=== PATIENT | female | born 1990 | race Caucasian/White ===

== ENCOUNTER 2017-01-07 20:30 | Emergency (ER) | payer OTHER, SELFPAY ==
[2017-01-07] MEDS ORDERED: Acetaminophen 500 MG TAB ONE (20:56)
[2017-01-07 21:08] LABS: Bilirubin Negative (Negative); Blood, Urine Small (Negative); Clarity Clear (Clear); Glucose, Urine (Dipstick) Negative (Negative); Leukocyte Negative (Negative); Nitrite Negative (Negative); Protein, Urine (Dipstick) Negative (Neg-Trace); Urobilinogen 0.2 mg/dL (0.2-1.0)
[2017-01-07] MEDS ORDERED: Ondansetron ODT 4 MG TAB ONE (21:12)
[2017-01-07 21:16] LABS: Pregnancy Test - Urine (BHCG) Negative (NEGATIVE); Pregu Control Background? CLEAR/WHITE (CLR/WHITE); Pregu Control Bar Appear? YES (CONTROL BAR)
[2017-01-07 21:20] LABS: Amphetamine Detected (NotDetected); Benzodiazepine Screen Detected (NotDetected); Opiate Screen Detected (NotDetected)
[2017-01-07 21:21] LABS: Barbiturates Screen Not Detected (NotDetected); Cocaine Metabolite Screen Not Detected (NotDetected); Medtox Control Line Valid? VALID (VALID); Methadone Not Detected (NotDetected); Methamphetamine Not Detected (NotDetected); Oxycodone Screen Not Detected (NotDetected); Phencyclidine (PCP) Not Detected (NotDetected); THC/Cannabinoid Screen Not Detected (NotDetected); Tricyclic Screen Not Detected (NotDetected)
[2017-01-07 21:24] LABS: Bacteria/HPF None Seen HPF (None Seen); RBC/HPF 0-3 HPF (0-3); Squamous Epithelial 0-3 HPF (0-3); WBC/HPF None Seen HPF (0-3)
[2017-01-07] MEDS ORDERED: Ibuprofen 100 MG/5 ML UDCUP ONE (21:59)
== END 2017-01-07 21:55 | disposition home or self-care (01) ==
LOC: NAV ERS 20:30
DX: N93.8 Other specified abnormal uterine and vaginal bleeding (principal); Z87.442 Personal history of urinary calculi
CPT/HCPCS: 80306; 81003; 81015; 81025; 87086; 99284; Q0162

== ENCOUNTER 2017-03-01 21:28 | Emergency (ER) | payer SELFPAY ==
[2017-03-01] MEDS ORDERED: guaiFENesin 100 MG/5 ML UDCUP ONE (22:08)
[2017-03-01] MEDS ORDERED: Acetaminophen 500 MG TAB ONE (22:08)
[2017-03-01] MEDS ORDERED: AMOXicillin 250 MG CAP ONE (22:16)
== END 2017-03-01 22:20 | disposition home or self-care (01) ==
LOC: NAV ERS 21:28
DX: J01.90 Acute sinusitis, unspecified (principal); J06.9 Acute upper respiratory infection, unspecified; Z87.442 Personal history of urinary calculi
CPT/HCPCS: 87081; 87430; 99283

== ENCOUNTER 2017-05-11 17:53 | Emergency (ER) | payer SELFPAY ==
[2017-05-11] MEDS ORDERED: Bicillin LA 1.2 MILLION UNITS/2 ML SYRINGE ONE (18:07)
[2017-05-11] MEDS ORDERED: Dexamethasone 4 mg/ml Vial ONE (18:08)
== END 2017-05-11 18:40 | disposition home or self-care (01) ==
LOC: NAV ERS 17:53
DX: J02.0 Streptococcal pharyngitis (principal); F17.210 Nicotine dependence, cigarettes, uncomplicated; F41.9 Anxiety disorder, unspecified; Z87.442 Personal history of urinary calculi
CPT/HCPCS: 96372; J0561; J1100

== ENCOUNTER 2017-06-02 15:40 | Emergency (ER) | payer SELFPAY ==
[2017-06-02 16:21] LABS: Mean Corpuscular HGB CONC 33.6 g/dL (32.0-36.0); Mean Corpuscular Volume 96.3 fl (81.0-99.0); Mean Platelet Volume 10.3 fL (7.4-10.4); RBC Distribution Width 11.7 % (11.5-14.5); White Blood Cell (WBC) Count 7.6 thou/uL (4.8-10.8)
[2017-06-02 16:22] LABS: BHCG - Serum Negative (NEGATIVE); Pregs Control Bar Appear? YES (CONTROL BAR)
[2017-06-02 16:23] LABS: #Basophils 0.2 thou/uL (0.0-0.2); #Eosinphils 0.2 thou/uL (0.0-0.7); #Lymphocytes 2.8 thou/uL (1.20-3.40); #Monocytes 0.7 thou/uL (0.11-0.59); #Neutrophils 3.7 thou/uL (1.40-6.50); %Basophils 2.7 % (0.0-1.0); %Eosinophils 2.6 % (0.0-10.0); %Neutrophils 48.8 % (42.0-75.0); Hemoglobin 14.2 g/dL (12.0-16.0); Mean Corpuscular Hemoglobin 32.4 pg (27.0-31.0); Platelet Count 257 thou/uL (130-400)
[2017-06-02 16:25] LABS: Red Blood Cell (RBC) Count 4.37 mill/uL (4.20-5.40)
[2017-06-02] MEDS ORDERED: traMADol HCl 50 MG TAB ONE (16:38)
[2017-06-03 01:23] LABS: Chlamydia by PCR Not Detected (NotDetected); GC by PCR Not Detected (NotDetected)
== END 2017-06-02 16:55 | disposition home or self-care (01) ==
LOC: NAV ERS 15:40
DX: N93.8 Other specified abnormal uterine and vaginal bleeding (principal); F41.9 Anxiety disorder, unspecified; F17.210 Nicotine dependence, cigarettes, uncomplicated; Z87.442 Personal history of urinary calculi
CPT/HCPCS: 84703; 85025; 87480; 87491; 87510; 87591; 87660; 99284

== ENCOUNTER 2017-06-20 12:40 | Emergency (ER) | payer SELFPAY ==
[2017-06-20 13:20] LABS: Bilirubin Negative (Negative); Blood, Urine Large (Negative); Clarity Slightly Cloudy (Clear); Glucose, Urine (Dipstick) Negative (Negative); Leukocyte Negative (Negative); Nitrite Negative (Negative); Protein, Urine (Dipstick) Negative (Neg-Trace); Urobilinogen 0.2 mg/dL (0.2-1.0); pH, Urine 5.5 (5.0-9.0)
[2017-06-20 13:29] LABS: Bacteria/HPF Rare-Few HPF (None Seen); RBC/HPF GREATER THAN 50-TNTC HPF (0-3); Squamous Epithelial 0-3 HPF (0-3); WBC/HPF 0-3 HPF (0-3)
[2017-06-20] MEDS ORDERED: Ondansetron ODT 4 MG TAB ONE (14:07)
[2017-06-20] MEDS ORDERED: Ketorolac Tromethamine 60 MG/2 ML VIAL ONE (14:09)
--- NOTE | 2017-06-20 15:07 | ULT ---
PELVIC ULTRASOUND WITH GRAYSCALE AND COLOR DOPPLER FLOW IMAGING: Technique: Transvaginal and transabdominal pelvic ultrasound performed. Indication: Left lower quadrant pain, vaginal spotting. New onset findings. FINDINGS: Endometrial stripe thickness is normal for patient's age at 6 mm. No focal uterine lesion evident. T here are follicles involving each ovary. Doppler assessment reveals flow to each ovary. No free pelv ic fluid. IMPRESSION: No significant pelvic abnormality identified for patient's age. POS: KENNEY
== END 2017-06-20 15:16 | disposition home or self-care (01) ==
LOC: NAV ERS 12:40
DX: R10.11 Right upper quadrant pain (principal); R10.12 Left upper quadrant pain; R10.30 Lower abdominal pain, unspecified; F41.9 Anxiety disorder, unspecified; F17.210 Nicotine dependence, cigarettes, uncomplicated; Z79.899 Other long term (current) drug therapy
CPT/HCPCS: 76856; 81003; 81015; 96372; J1885; Q0162

== ENCOUNTER 2017-06-25 16:59 | Emergency (ER) | payer SELFPAY ==
[2017-06-25 17:21] LABS: Bilirubin Negative (Negative); Blood, Urine Negative (Negative); Clarity Clear (Clear); Glucose, Urine (Dipstick) Negative (Negative); Leukocyte Negative (Negative); Nitrite Negative (Negative); Protein, Urine (Dipstick) Negative (Neg-Trace); Specific Gravity, Urine 1.015 (1.005-1.030); Urobilinogen 0.2 mg/dL (0.2-1.0)
[2017-06-25 17:24] LABS: Pregnancy Test - Urine (BHCG) Negative (Negative); Pregu Control Background? CLEAR/WHITE (CLR/WHITE); Pregu Control Bar Appear? YES (CONTROL BAR); Specific Gravity 1.015 (1.002-1.036)
[2017-06-25] MEDS ORDERED: Acetaminophen 500 MG TAB ONE (18:15)
== END 2017-06-25 19:00 | disposition home or self-care (01) ==
LOC: NAV ERS 16:59
DX: J32.9 Chronic sinusitis, unspecified (principal); F41.9 Anxiety disorder, unspecified; F17.210 Nicotine dependence, cigarettes, uncomplicated
CPT/HCPCS: 81003; 81025; 99283

== ENCOUNTER 2017-08-27 20:51 | Emergency (ER) | payer OTHER, SELFPAY ==
[2017-08-27 21:43] LABS: Pregu Control Background? CLEAR/WHITE (CLR/WHITE); Pregu Control Bar Appear? YES (CONTROL BAR); Specific Gravity 1.021 (1.002-1.036)
[2017-08-27 21:44] LABS: Pregnancy Test - Urine (BHCG) Negative (Negative)
[2017-08-27] MEDS ORDERED: traMADol HCl 50 MG TAB ONE (22:38)
== END 2017-08-27 22:45 | disposition home or self-care (01) ==
LOC: NAV ERS 20:51
DX: N94.6 Dysmenorrhea, unspecified (principal); F41.9 Anxiety disorder, unspecified; F17.210 Nicotine dependence, cigarettes, uncomplicated
CPT/HCPCS: 81025; 99284

== ENCOUNTER 2018-04-21 12:02 | Emergency (ER) | payer OTHER, SELFPAY ==
[2018-04-21 12:21] LABS: Bilirubin Negative (Negative); Blood, Urine Trace (Negative); Clarity Clear (Clear); Glucose, Urine (Dipstick) Negative (Negative); Leukocyte Trace (Negative); Nitrite Negative (Negative); Protein, Urine (Dipstick) Negative (Neg-Trace); Urobilinogen 0.2 mg/dL (0.2-1.0); pH, Urine 6.5 (5.0-9.0)
[2018-04-21 12:24] LABS: Pregnancy Test - Urine (BHCG) Negative (Negative); Pregu Control Background? CLEAR/WHITE (CLR/WHITE); Pregu Control Bar Appear? YES (CONTROL BAR)
[2018-04-21 12:33] LABS: WBC/HPF 0-3 HPF (0-3)
[2018-04-21 12:34] LABS: Bacteria/HPF Rare-Few HPF (None Seen); Other Microscopic Description NO
== END 2018-04-21 13:02 | disposition home or self-care (01) ==
LOC: NAV ERS 12:02
DX: F41.9 Anxiety disorder, unspecified (principal); R10.31 Right lower quadrant pain; F17.210 Nicotine dependence, cigarettes, uncomplicated; Z79.899 Other long term (current) drug therapy
CPT/HCPCS: 81003; 81015; 81025; 99284

== ENCOUNTER 2019-01-23 04:38 | Emergency (ER) | payer SELFPAY ==
[2019-01-23 05:13] LABS: Bilirubin Negative (Negative); Blood, Urine Small (Negative); Glucose, Urine (Dipstick) Negative (Negative); Leukocyte Large (Negative); Nitrite Positive (Negative); Pregnancy Test - Urine (BHCG) Negative (Negative); Pregu Control Background? CLEAR/WHITE (CLR/WHITE); Pregu Control Bar Appear? YES (CONTROL BAR); Protein, Urine (Dipstick) 30 mg/dL (Neg-Trace); Specific Gravity, Urine 1.025 (1.005-1.030); Urobilinogen 0.2 mg/dL (0.2-1.0); pH, Urine 5.5 (5.0-9.0)
[2019-01-23 05:14] LABS: Clarity Hazy (Clear); Specific Gravity 1.025 (1.002-1.036)
[2019-01-23 05:19] LABS: Bacteria/HPF 1+ HPF (None Seen); RBC/HPF 0-3 HPF (0-3); Squamous Epithelial 0-3 HPF (0-3)
[2019-01-23] MEDS ORDERED: Acetaminophen 500 MG TAB ONE (06:48)
--- NOTE | 2019-01-23 09:57 | RAD ---
SINGLE VIEW CHEST AND RIGHT RIB SERIES: HISTORY: Right ribs/chest pain. COMPARISON: None. TECHNIQUE: A single view of the chest and two views of the right ribs was performed. FINDINGS: There is a normal sized cardiomediastinal silhouette. There is no evidence of consolidation, mass, o r pleural effusion. No displaced right rib fracture is seen. No underlying pneumothorax or pleural effusion is seen. Ch olecystectomy clips are present. IMPRESSION: Unremarkable examination. POS: RUIH
== END 2019-01-23 06:47 | disposition home or self-care (01) ==
LOC: NAV ERS 04:38
DX: S23.41XA Sprain of ribs, initial encounter (principal); N39.0 Urinary tract infection, site not specified; F41.9 Anxiety disorder, unspecified; F32.9 Major depressive disorder, single episode, unspecified; F17.210 Nicotine dependence, cigarettes, uncomplicated; Z79.899 Other long term (current) drug therapy; W22.8XXA Striking against or struck by other objects, initial encounter
CPT/HCPCS: 81003; 81015; 81025; 87077; 87086; 87186